=== PATIENT | male | born 1985 | race Caucasian/White ===

== ENCOUNTER → 2023-02-10 | Outpatient (OUT) | payer OTHER, SELFPAY ==
[2023-02-10 13:31] LABS: Basophils Percent Auto 0.4 % (0.2-2.0); Eosinophils Absolute Auto 0.1 10^3/uL (0.0-0.7); Eosinophils Percent Auto 1.9 % (0.9-7.0); Hematocrit 40.4 % (42.0-54.0); Hemoglobin 14.1 g/dL (14.0-18.0); Immature Granulocytes Abs Auto 0.01 10^3/uL (0.00-0.03); Immature Granulocytes Pct Auto 0.2 % (0.0-0.5); Lymphocytes Absolute Auto 1.5 10^3/uL (1.2-3.8); Lymphocytes Percent Auto 32.1 % (20.5-60.0); Mean Corpuscular HGB Conc 34.9 g/dL (29.9-35.2); Mean Corpuscular Hemoglobin 29.7 pg (25.9-34.0); Mean Corpuscular Volume 85.1 fL (80.0-94.0); Mean Platelet Volume 10.6 fL (9.5-13.5); Monocytes Absolute Auto 0.5 10^3/uL (0.3-0.8); Neutrophils Absolute Auto 2.6 10^3/uL (1.4-6.5); Neutrophils Percent Auto 55.4 % (43.0-75.0); Platelet Count 194 10^3/uL (150-450); Red Blood Count 4.75 10^6/uL (4.70-6.10); Red Cell Distribution Width 13.1 % (11.0-15.0); White Blood Count 4.7 10^3/uL (4.0-11.0)
[2023-02-10 14:26] LABS: Estimated Average Glucose 100 mg/dL; Glycohemoglobin A1C 5.1 % (4.5-6.2)
[2023-02-10 14:45] LABS: Alanine Aminotransferase 38 U/L (16-63); Albumin Globulin Ratio 1.3; Albumin Level 4.2 g/dL (3.4-5.0); Alkaline Phosphatase 53 U/L (46-116); Anion Gap 10.1; Aspartate Amino Transferase 17 U/L (15-37); BUN Creatinine Ratio 16.8; Bilirubin Direct 0.1 mg/dL (0.0-0.2); Bilirubin Total 0.6 mg/dL (0.2-1.0); Calcium 9.3 mg/dL (8.5-10.1); Carbon Dioxide 30.7 mmol/L (21.0-32.0); Chloride 102 mmol/L (98-107); Chol HDL Ratio 3.2; Cholesterol 183 mg/dL (<=200); Estimated GFR (African America >60 (>=60); Estimated GFR (Non-African Ame >60 (>=60); Globulin 3.2 g/dL; Glucose 103 mg/dL (74-106); HDL Cholesterol 57 mg/dL (40-60); LDL Cholesterol Calculated 102.8 mg/dL; Potassium 3.8 mmol/L (3.5-5.1); Sodium 139 mmol/L (136-145); Thyroid Stimulating Hormone 0.765 uIU/mL (0.358-3.740); Total Protein 7.4 g/dL (6.4-8.2); Triglycerides 116 mg/dL (<=150); VLDL CHOLESTEROL 23.2 mg/dL
[2023-02-11 15:09] LABS: Deamidated Gliadin Abs, IgA 6 units (0-19); Deamidated Gliadin Abs, IgG 3 units (0-19); Endomysial Antibody IgA Negative (Negative); Immunoglobulin A, Qn, Serum 236 mg/dL (90-386); t-Transglutaminase (tTG) IgA <2 U/mL (0-3); t-Transglutaminase (tTG) IgG <2 U/mL (0-5)
== END ==
LOC: LAB 12:41
PROVIDERS: PCP Family Medicine; Visit Provider Family Medicine
DX: Z00.00 Encounter for general adult medical examination without abnormal findings (principal); K92.1 Melena
CPT/HCPCS: 36415; 80048; 80061; 80076; 82784; 83036; 84443; 85025; 86231; 86258; 86364

== ENCOUNTER 2024-05-02 08:36 | Outpatient (OUT) | payer OTHER, SELFPAY ==
[2024-05-02 09:05] LABS: Basophils Percent Auto 0.2 % (0.2-2.0); Eosinophils Absolute Auto 0.1 10^3/uL (0.0-0.7); Eosinophils Percent Auto 2.4 % (0.9-7.0); Hemoglobin 15.2 g/dL (14.0-18.0); Immature Granulocytes Abs Auto 0.01 10^3/uL (0.00-0.03); Immature Granulocytes Pct Auto 0.2 % (0.0-0.5); Lymphocytes Absolute Auto 1.3 10^3/uL (1.2-3.8); Lymphocytes Percent Auto 24.2 % (20.5-60.0); Mean Corpuscular HGB Conc 34.5 g/dL (29.9-35.2); Mean Corpuscular Volume 89.6 fL (80.0-94.0); Mean Platelet Volume 10.9 fL (9.5-13.5); Monocytes Absolute Auto 0.4 10^3/uL (0.3-0.8); Monocytes Percent Auto 8.1 % (1.7-12.0); Neutrophils Absolute Auto 3.6 10^3/uL (1.4-6.5); Neutrophils Percent Auto 64.9 % (43.0-75.0); Platelet Count 179 10^3/uL (150-450); Red Blood Count 4.91 10^6/uL (4.70-6.10); Red Cell Distribution Width 12.7 % (11.0-15.0); White Blood Count 5.5 10^3/uL (4.0-11.0)
[2024-05-02 10:11] LABS: Alanine Aminotransferase 29 U/L (16-63); Albumin Globulin Ratio 1.4; Albumin Level 4.1 g/dL (3.4-5.0); Alkaline Phosphatase 51 U/L (46-116); Anion Gap 12.1; Aspartate Amino Transferase 12 U/L (15-37); BUN Creatinine Ratio 8.9; Bilirubin Direct 0.2 mg/dL (0.0-0.2); Bilirubin Total 0.7 mg/dL (0.2-1.0); Calcium 9.2 mg/dL (8.5-10.1); Carbon Dioxide 27.9 mmol/L (21.0-32.0); Chloride 103 mmol/L (98-107); Chol HDL Ratio 2.6; Cholesterol 158 mg/dL (<=200); Estimated GFR (African America >60 (>=60); Estimated GFR (Non-African Ame >60 (>=60); Globulin 2.9 g/dL; Glucose 121 mg/dL (74-106); HDL Cholesterol 61 mg/dL (40-60); Sodium 139 mmol/L (136-145); Thyroid Stimulating Hormone 0.522 uIU/mL (0.358-3.740); Triglycerides 59 mg/dL (<=150); VLDL CHOLESTEROL 11.8 mg/dL
[2024-05-02 10:26] LABS: Estimated Average Glucose 91 mg/dL; Glycohemoglobin A1C 4.8 % (4.5-6.2)
[2024-05-03 04:12] LABS: Testosterone 510 ng/dL (264-916)
== END 2024-05-02 08:37 | disposition home or self-care (01) ==
LOC: LAB 08:38
PROVIDERS: PCP Family Medicine; Visit Provider Family Medicine
DX: Z00.00 Encounter for general adult medical examination without abnormal findings (principal)
CPT/HCPCS: 36415; 80048; 80061; 80076; 83036; 84403; 84443; 85025

== ENCOUNTER 2024-08-10 16:21 | Outpatient (OUT) | payer OTHER, SELFPAY ==
--- OUTSIDE RECORDS SUMMARY | 2024-08-10 16:30 | XMS_ITS | CCD ---
Author Organization [facility] Care Team Providers Care Lens Edge Gr[employer] Name Role Phone SHAIKH Letty ALEXANDRE Admitting Unavailable BETTIE, SHAIKH Letty Attending Unavailable EMMANUEL, DR NOÉ New Primary Care Unavailable EMMANUEL, DR NOÉ New Admitting Unavailable EMMANUEL, DR NOÉ New Attending Unavailable FAWGLEN, SHAIKH Letty Admitting Unavailable FAJUAN FRANCISCO, SHAIKH Letty Attending Unavailable EMMANUEL, DR NOÉ New Primary Care Unavailable HERNANDEZ, DR OTONIEL De La Torre Consulting Unavailable MALIKAWGLEN, SHAIKH Letty Consulting Unavailable KAYLEE, ERIK Morton Attending Unavailable EMMANUEL, NOÉ Attending Unavailable PAGE, ERIK Morton Attending Unavailable APLING, ARIES Trivedi Attending Unavailable PAGE, ERIK Morton Attending Unavailable PAGE, ERIK Morton Referring Unavailable PAGE, ERIK Morton Attending Unavailable PAGE, ERIK Praveen Attending Unavailable NICHO, ARIES Trivedi Attending Unavailable PAGE, ERIK Praveen Attending Unavailable PAGE, ERIK T Referring Unavailable POLLO, DOROTHY New Attending Unavailable NADERER, NOÉ Attending Unavailable PAGE, ERIK Praveen Referring Unavailable PAGE, ERIK Morton Attending Unavailable Noé Benitez MD Primary Care Provider Kaylee RUFFIN, Erik Morton Unavailable Allergies Allergy Classification Reported Allergen(s) Allergy Type Date of Onset Reaction(s) Facility (2 sources) Amoxicillin Drug Allergy 6 [facility] Repository (3 sources) Penicillins Propensity to adverse reactions 3 Anaphylaxis [facility] Medications Current Medications Medication Drug Class(es) Dates Sig (Normalized) Sig (Original) cetirizine hydrochloride 10 mg oral tablet (3 sources) Histamine-1 Receptor Antagonist Start: 09-24-2023 take 1 tablet by mouth in the morning cetirizine (ZyrTEC) 10 MG tablet Indications: Seasonal allergic rhinitis due to pollen Take 1 tablet (10 mg) by mouth in the morning. 90 tablet 3 09/24/2023 Active levoFLOXacin 750 mg oral tablet (2 sources) Quinolone Antimicrobial Start: 07-29-2024 End: 08-10-2024 take 1 tablet by mouth once daily levoFLOXacin (Levaquin) 750 MG tablet Indications: Upper respiratory tract infection, unspecified type Take 1 tablet (750 mg) by mouth Daily for 7 days 7 tablet 07/29/2024 08/10/2024 Discontinued montelukast 10 mg oral tablet (3 sources) Leukotriene Receptor Antagonist Start: 09-24-2023 take 1 tablet by mouth at bedtime montelukast (Singulair) 10 MG tablet Indications: Seasonal allergic rhinitis due to pollen Take 1 tablet (10 mg) by mouth at bedtime 90 tablet 3 09/24/2023 Active nabumetone 500 mg oral tablet (2 sources) Nonsteroidal Anti-inflammatory Drug take 1 tablet by mouth in the morning nabumetone (Relafen) 500 MG tablet Take 500 mg by mouth in the morning and 500 mg before bedtime. Active omeprazole 40 mg delayed release oral capsule (3 sources) Proton Pump Inhibitor Start: 09-24-2023 End: 09-23-2024 take 1 capsule by mouth in the morning omeprazole (PriLOSEC) [address] capsule Indications: GERD without esophagitis Take 1 capsule (40 mg) by mouth in the morning. 90 capsule 3 09/24/2023 09/23/2024 Active predniSONE 50 mg oral tablet (2 sources) Start: 08-10-2024 End: 08-16-2024 take 1 tablet by mouth once daily predniSONE (Deltasone) 50 MG tablet Indications: Lateral epicondylitis, right elbow Take 1 tablet (50 mg) by mouth Daily for 6 days 6 tablet 08/10/2024 08/16/2024 Active Problems Active Problems Problem Classification Problem Date Documented Date Episodic/Chronic Esophageal disorders (3 sources) Gastroesophageal reflux disease without esophagitis; Translations: [Gastro-esophageal reflux disease without esophagitis] Onset: 09-24-2023 09-24-2023 Chronic Immunizations and screening for infectious disease (4 sources) Exposure to sexually transmissible disorder; Translations: [Contact with and (suspected) exposure to infections with a predominantly sexual mode of transmission] Onset: 08-10-2024 08-10-2024 Episodic Other connective tissue disease (4 sources) Lateral epicondylitis of right humerus; Translations: [Lateral epicondylitis, right elbow] Onset: 08-10-2024 08-10-2024 Episodic Other nervous system disorders (3 sources) Bilateral carpal tunnel syndrome; Translations: [Carpal tunnel syndrome, bilateral upper limbs] Onset: 09-24-2023 09-24-2023 Chronic Other non-traumatic joint disorders (4 sources) Pain in right shoulder; Translations: [PAIN IN RIGHT SHOULDER] Onset: 06-13-2022 Episodic Other upper respiratory disease (3 sources) Allergic rhinitis due to pollen; Translations: [Allergic rhinitis due to pollen] Onset: 09-24-2023 09-24-2023 Chronic Past or Other Problems Problem Classification Problem Date Documented Da te Episodic/Chronic Gastrointestinal hemorrhage (3 sources) Blood-tinged feces; Translations: [Melena] Onset: 09-24-2023 09-24-2023 Episodic Other connective tissue disease (3 sources) Impingement syndrome of right shoulder region; Translations: [Impingement syndrome of right shoulder] Onset: 05-18-2023 05-18-2023 Episodic Other non-traumatic joint disorders (3 sources) Chronic pain of right upper limb; Translations: [Pain in right shoulder] Onset: 05-18-2023 05-18-2023 Episodic Other upper respiratory infections (3 sources) Acute pansinusitis; Translations: [Acute pansinusitis, unspecified] Onset: 09-24-2023 Resolved: 08-10-2024 09-24-2023 Episodic Results Test Name Value Interpretation Reference Range Facil ity MR SHOULDER LEFT WO IV CONTR Umesh 05-04-2024 MR SHOULDER LEFT WO IV CONTRAST EXAMINATION: MR SHOULDER LEFT WO IV CONTRAST HISTORY: Left shoulder pain. TECHNIQUE: Routine non-contrast MRI of the shoulder, left side COMPARISON: Radiographs 01/12/2024. RESULT: Rotator Cuff Tendons: Mild tendinosis involving supraspinatus and infraspinatus, without tear. Subscapularis and teres minor appear intact. Long Head Biceps Tendon: Appears intact with appropriate location. Muscle: Muscle bulk and signal intensity are within normal limits. Labrum: Appears intact. Bones and Marrow: No evidence of fracture or bone marrow replacing process. Glenohumeral Joint: Cartilage appears within normal limits. No joint effusion or synovitis. Acromioclavicular Joint: Mild to moderate degenerative changes with undersurface osteophytes. Other: No other significant abnormality. IMPRESSION: Rotator cuff tendinosis, without tear. ELECTRONICALLY SIGNED BY: Philip Parrish MD Normal Not Available Comment on above: Order Comment: MRI L T shoulder w/o at [facility]. Orbits if needed. Eval for labrum tear. Vital Signs Date Time Vital Sign Value Performing Clinician Faci lity 08-10-2024 07:30-0500 Body height 175.3 cm Noé Benitez MD Work Phone: [facility] 08-10-2024 07:30-0500 Body mass index (BMI) [Ratio] 32.49 kg/m2 Noé Benitez MD Work Phone: [facility] 08-10-2024 07:30-0500 Body temperature 97.11 [degF] Noé Benitez MD Work Phone: [facility] 08-10-2024 07:30-0500 Body weight 99.79 kg Noé Benitez MD Work Phone: [facility] 08-10-2024 07:30-0500 Diastolic blood pressure 68 mm[Hg] Noé Benitez MD Work Phone: [facility] 08-10-2024 07:30-0500 Heart rate 96 /min Noé Benitez MD Work Phone: [facility] 08-10-2024 07:30-0500 Respiratory rate 18 /min Noé Benitez MD Work Phone: [facility] 08-10-2024 07:30-0500 SaO2% (BldA) [Mass fraction] 98 % Noé Benitez MD Work Phone: [facility] 08-10-2024 07:30-0500 Systolic blood pressure 112 mm[Hg] Noé Benitez MD Work Phone: [facility] Encounters Encounter Date Encounter Type Care Provider Facility Start: 08-10-2024 End: 08-10-2024 Bamboo flowsheet Noé Benitez MD Work Phone: [facility] Start: 08-10-2024 End: 08-10-2024 Bamboo flowsheet Noé Benitez MD Work Phone: [facility] Start: 08-10-2024 End: 08-10-2024 Office outpatient visit 15 minutes Noé Benitez MD Work Phone: [facility] Comment on above: Lateral epicondyliti s, right elbow (Primary Dx); STD exposure Start: 05-04-2024 End: 05-04-2024 ambulatory ERIK T PAGE Not Available Start: 04-28-2024 Patient encounter procedure Noé Benitez MD Work Phone: [facility] Start: 04-28-2024 End: 04-28-2024 ambulatory NOÉ BENITEZ Not Available Start: 04-14-2024 End: 04-14-2024 ambulatory DOROTHY ABAD Not Available Start: 04-13-2024 End: 04-13-2024 ambulatory ERIK T PAGE Not Available Start: 03-15-2024 End: 03-15-2024 ambulatory ERIK T PAGE Not Available Start: 02-23-2024 End: 02-23-2024 ambulatory ERIK T PAGE Not Available Start: 01-12-2024 End: 01-12-2024 ambulatory ERIK T PAGE Not Available Start: 11-03-2023 End: 11-03-2023 ambulatory ERIK T PAGE Not Available Start: 09-24-2023 End: 09-24-2023 ambulatory NOÉ BENITEZ Not Available Start: 09-22-2023 End: 09-22-2023 ambulatory ERIK T PAGE Not Available Start: 08-28-2023 End: 08-28-2023 ambulatory ERIK T PAGE Not Available Start: 08-12-2023 End: 08-12-2023 ambulatory ARIES Trivedi APLING Not Available Start: 08-05-2023 End: 08-05-2023 ambulatory ARIES Trivedi APLING Not Available Start: 06-13-2022 End: 06-14-2022 ambulatory SHAIKH Letty ALEXANDRE Facility:[facility] Start: 06-04-2022 End: 06-05-2022 ambulatory SHAIKH Letty ALEXANDRE Facility:[facility] Start: 03-19-[address] NOÉ BENITEZ [facility] ity:H1 Plan of Treatment Date Care Activity Detail Author Start: 05-01-2025 End: 05-01-2025 Patient encounter procedure 05/01/2025 9:00 AM EDT Office [facility] [address] [place] [address] Noé Benitez MD [address] [place] [address] [facility] Start: 08-18-2024 End: 08-18-2024 Patient encounter procedure 08/18/2024 8:00 AM EST Office Visit [facility] [address] [place] [id number] Erik Page, [employer] [address] [place], [place] [id number] [facility] Start: 08-10-2024 End: 08-10-2025 Hepatitis 1996 panel - Serum Hepatitis panel, acute Lab Routine STD exposure Expected: 08/10/2024 (Approximate), Expires: 08/10/2025 [facility] Comment on above: Expected: 08/10/2024 (Approximate), Expires: 08/10/2025 Start: 08-10-2024 End: 08-10-2025 HIV-1/HIV-2 antigen/antibody combination immunoassay HIV 1/2 antibodies, rapid Lab Routine STD exposure Expected: 08/10/2024 (Approximate), Expires: 08/10/2025 [facility] Comment on above: Expected: 08/10/2024 (Approximate), Expires: 08/10/2025 Start: 08-10-2024 End: 08-10-2025 HSV 1/2 IGG,TYPE SPECIFIC AB HSV 1/2 IGG,TYPE SPECIFIC AB Lab Routine STD exposure Expected: 08/10/2024 (Approximate), Expires: 08/10/2025 [facility] Comment on above: Expected: 08/10/2024 (Approximate), Expires: 08/10/2025 Start: 08-10-2024 End: 08-10-2025 Neisseria gonorrhoeae DNA [Presence] in Cervical mucus by SU with probe detection C. trachomatis / N. gonorrhoeae, DNA probe Pathology and Cytology Routine STD exposure Expected: 08/10/2024 (Approximate), Expires: 08/10/2025 [facility] Work Phone: Comment on above: Expected: 08/10/2024 (Approximate), Expires: 08/10/2025 Start: 08-10-2024 End: 08-10-2025 Reagin Ab [Presence] in Serum by RPR RPR Lab Routine STD exposure Expected: 08/10/2024 (Approximate), Expires: 08/10/2025 [facility] Comment on above: Expected: 08/10/2024 (Approximate), Expires: 08/10/2025 Start: 05-08-2024 Influenza vaccination Influenza Vacc ine (#1) [facility] Healthcare Payers Date Payer Category Payer Medicaid (Managed Care) [employer] [id number] 1987 Unknown [id number] [id number]. 593 1987 Unknown [id number] [id number]. 593 1987 Unknown [id number] 2.16840.1.642681.3.579.2. 593 1987 Unknown [id number] 2.16840.1.715504.3.579.2. 1259 1987 Unknown [id number] 2.16.840.1.141344.3.579.2. 1259 1987 Unknown [id number] 2.16.840.1.430032.3.579.2. 9 1987 Unknown [id number] 2.16.840.1.891853.3.579.2. 1259 1987 Unknown [id number] 2.16.840.1.084854.3.579.2. 9 1987 Unknown [id number] 2.16.840.1.979947.3.579.2. 1259 1987 Unknown [id number] 2.16.840.1.898860.3.579.2. 9 1987 Unknown [id number] 2.16.840.1.046274.3.579.2. 9 1987 Unknown [id number] 2.16.840.1.529857.3.579.2. 9 1987 Unknown [id number] 2.16.840.1.159423.3.579.2. 1259 1987 Unknown [id number] 2.16.840.1.958357.3.579.2. 9 1987 Unknown [id number] 2.16.840.1.699129.3.579.2. 9 1987 Unknown [id number] 2.16.840.1.349393.3.579.2. 9 1987 Unknown [id number] 2.16.840.1.840528.3.579.2. 1259 1987 Unknown [id number] 2.16.840.1.245371.3.579.2. 1259 1959 Self-pay 1957 Unknown [id number] Social History Date Type Detail Facility Start: 04-13-2023 Tobacco smoking status RIIS Never sm oked tobacco [facility] Start: 04-13-2023 Tobacco use and exposure Smoke less tobacco non-user [facility] Start: 04-28-2024 End: 08-10-2024 Alcoholic beverage intake Current drinker of alcohol (finding) [facility] Start: 03-21-2024 End: 04-28-2024 Alcoholic beverage intake [facility] Start: 09-24-2023 End: 03-21-2024 [id number] Health Literacy [facility] How often do you nee d to have someone help you when you read instructions, pamphlets, or other written material from your doctor or pharmacy [SILS] Never [facility] Do you belong to any clubs or organizations such as jewish groups, unions, fraternal or athletic groups, or school groups? No [facility] Are you now , , , , never or living with a partner? [facility] How often to you hav e a drink containing alcohol? 2-4 times a month [facility] How many standard dr inks containing alcohol do you have on a typical day? 1 or 2 [facility] How often do you hav e 6 or more drinks on 1 occasion? Never [facility] How hard is it for y ou to pay for the very basics like food, housing, medical care, and heating Not very hard [facility] Do you feel stress - tense, restless, nervous, or anxious, or unable to sleep at night because your mind is troubled all the time - these days [OSQ] Not at all [facility] (I/We) worried whematias er (my/our) food would run out before (I/we) got money to buy more. Never true [facility] Start: 04-13-2023 Alcohol Comment Soically [facility] Start: 1985 Sex assigned at Not on file [facility] History of Present illness Narrative 08-10-2024 Noé Benitez MD - 08/10/2024 8:11 AM Yair Benitez MD - 08/10/2024 8:11 AM Yair Benitez MD - 08/10/2024 7:15 AM EST Note Date & Type Note Facility 08-10-2024 History of Presen t illness Narrative Associated Problem(s): STD exposure Check labs Associated Problem(s): Lateral epicondylitis, right elbow Likely tennis elbow and inflammation. Start prednisone. Use OTC for pain and ice PRN. Handout with ROM exercises to patient. If no improvement may need PT. Images from the original note were not included. Subjective Patient ID: Tamir Painter is a 39 y.o. male who presents for Follow-up (Check up/Would like std check) and Elbow Pain. C/o right elbow pain for several weeks. Works construction and left-handed. No change in activity or lifting. Pain in outer elbow and tender to touch. Pain into forearm. No pain with lifting or squeezing. Not limiting activity. No weakness in elbow. Not tried ice or OTC. Concerned of STD exposure. and had new partners with unprotected intercourse. Review of Systems Constitutional: Negative for fatigue. Respiratory: Negative for cough, shortness of breath and wheezing. Cardiovascular: Negative for chest pain and palpitations. Gastrointestinal: Negative for abdominal pain, diarrhea, nausea and vomiting. Genitourinary: Negative for dysuria. Objective Physical Exam Constitutional: General: He is not in acute distress. Appearance: Normal appearance. HENT: Head: Normocephalic. Right Ear: Tympanic membrane and ear canal normal. Left Ear: Tympanic membrane and ear canal normal. Eyes: Extraocular Movements: Extraocular movements intact. Pupils: Pupils are equal, round, and reactive to light. Cardiovascular: Rate and Rhythm: Normal rate and regular rhythm. Heart sounds: No murmur heard. No friction rub. No gallop. Pulmonary: Breath sounds: Normal breath sounds. No wheezing, rhonchi or rales. Abdominal: General: Bowel sounds are normal. There is no distension. Palpations: Abdomen is soft. Tenderness: There is no abdominal tenderness. There is no guarding or rebound. Musculoskeletal: Left lower leg: No edema. Comments: Right elbow: TTP over lateral epicondyle Neurological: Mental Status: He is alert. Assessment/Plan Problem List Items Addressed This Visit Lateral epicondylitis, right elbow - Primary Likely tennis elbow and inflammation. Start prednisone. Use OTC for pain and ice PRN. Handout with ROM exercises to patient. If no improvement may need PT. Relevant Medications predniSONE (Deltasone) 50 MG tablet STD exposure Check labs Relevant Orders C. trachomatis / N. gonorrhoeae, DNA probe HIV 1/2 antibodies, rapid RPR HSV 1/2 IGG,TYPE SPECIFIC AB Hepatitis panel, acute documented in this encounter [facility] Clinical Note 06-04-2022 Note Date & Type Note Facility 06-04-2022 Note PROCEDURE: XR SHOULD ER RT 2V or > COMPARISON: None. HISTORY: Pain of right shoulder joint FINDINGS: BONES:No fracture, acute abnormality, or significant arthropathy. SOFT TISSUES:Negative. No visible soft tissue swelling. EFFUSION:None visible. OTHER: Negative. IMPRESSION: No acute abnormality Electronically authenticated by: OTONIEL NG Date: 2022-06-04 09:08 [facility] Evaluation note Note Date & Type Note Facility Evaluation note Diagnosis Annual physical exam- Primary Routine general medical examination at a health care facility Primary osteoarthritis, right shoulder Lateral epicondylitis, right elbow- Primary STD exposure documented in this encounter [facility] Summary Purpose Family History No Family History Records FoundNo Family History Records Found Advance Directives No Advanced Directives Records FoundNo Advanced Directives Records Found Additional Source Comments (unrecognized sect ion and content) No Status Records FoundNo Status Records Found INFORMATION SOURCE (unrecogn ized section and content) DATE CREATED AUTHOR 07/30/2022 [facility] DATE CREATED AUTHOR AUTHOR'S ORGANIZ ATION 05/08/2024 [facility] [employer] Care Teams (unrecognized sec tion and content) [employer] Relationship Specialty Start Date End Date Noé Benitez MD [address] [place] [address] PCP - General Family Medicine 09/24/23 Erik Page NP [address] [place] [address] PCP - [facility] 06/07/24 [employer] Relationship Specialty Start Date End Date Noé Benitez MD [address] [place] [address] PCP - General Family Medicine 09/24/23 Erik Page NP [address] [place] [address] PCP - [facility] 06/07/24 Reason for Visit (unrecogniz ed section and content) Reason Comments Follow-up Check upWould like s td check Elbow Pain FOR RECORDS PERTAINING TO PATIENTS WHO ARE OR HAVE BEEN ENROLLED IN A CHEMICAL DEPENDENCY/SUBSTANCEABUSE PROGRAM, SOME INFORMATION MAY BE OMITTED. This clinical summary was aggregated from multiple sources. Caution should be exercised in using it in the provision of clinical care. This summary normalizes information from multiple sources, and as a consequence, information in this document may materially change the coding, format and clinical context of patient data. In addition, data may be omitted in some cases. CLINICAL DECISIONS SHOULD BE BASED ON THE PRIMARY CLINICAL RECORDS. [employer] provides no warranty or guarantee of the accuracy or completeness of information in this document.
[2024-08-12 05:08] LABS: HBsAg Screen Negative (Negative); HCV Ab Non Reactive (Non Reactive); HIV Ab/p24 Ag Screen Non Reactive (Non Reactive); Hep A Ab, IgM Negative (Negative); Hep B Core Ab, IgM Negative (Negative)
[2024-08-12 10:11] LABS: Rapid Plasma Reagin, Quant Non Reactive titer (NonRea<1:1)
[2024-08-12 20:09] LABS: Neisseria gonorrhoeae, NAA Negative (Negative)
[2024-08-15 08:07] LABS: HSV-1 DNA Negative (Negative); HSV-2 DNA Negative (Negative)
== END 2024-08-10 16:22 | disposition home or self-care (01) ==
LOC: LAB 16:21
PROVIDERS: PCP Family Medicine; Visit Provider Family Medicine
DX: Z20.2 Contact with and (suspected) exposure to infections with a predominantly sexual mode of transmission (principal)
CPT/HCPCS: 36415; 80074; 86592; 86695; 86696; 87389; 87491; 87591